=== PATIENT | male | born 1945 ===

== ENCOUNTER 2018-03-27 07:06 | Day surgery (SDC) | payer MEDICARE ==
--- NOTE | 2018-03-27 08:44 | CP.SDSHP ---
Same Day Surgery H & P - History Proposed Procedure: Screening colonoscopy Pre-Op Diagnosis: Screening for colon cancer - Previous Medical/Surgical History Cardiac: Hypertension Endocrine/Metabolic: Diabetes Previous Surgical History: Hernia - Allergies Allergies: Allergies No Known Allergies Allergy (Verified 02/04/15 17:03) - Current Medications Current Medications: See reconciliation sheet - Physical Exam General Appearance: WD WN male in NAD Vital Signs: Vital Signs 03/27/18 07:50 Temperature 98 F Pulse Rate 80 Respiratory 19 Rate Blood Pressure 133/80 O2 Sat by Pulse 98 Oximetry Mental Status: Alert & Oriented x3 Neuro: WNL Heart: WNL Lungs: WNL GI: WNL - {Optional Preform as Required} Abdomen: WNL - Impression Impression: Screening for colon cancer Pt. Evaluated Today:Candidate for Anesthesia & Procedure: Yes - Date & Time Date: 03/27/18 Time: 08:44 Short Stay Discharge - Short Stay Discharge Admitting Diagnosis/Reason for Visit: SCREENING Disposition: HOME/ ROUTINE
[2018-03-27] MEDS ORDERED: Propofol 10 mg/ml Inj (20 ML) ONE (08:56)
[2018-03-27] MEDS ORDERED: Lidocaine Hydrochloride 5 ML INJ ONE (08:57)
[2018-03-27 09:46] VITALS: TEMP 97.1
[2018-03-27 10:44] VITALS: BP 126/78; PULSE 69; RESP 15; O2SAT 97
== END 2018-03-27 10:42 | disposition home or self-care (01) ==
LOC: C.ENDO 07:06
PROVIDERS: ATTEND Internal Medicine Gastroenterology
DX: K57.90 Diverticulosis of intestine, part unspecified, without perforation or abscess without bleeding (principal); K64.8 Other hemorrhoids; D12.3 Benign neoplasm of transverse colon
CPT/HCPCS: 45380; 82948; 88305; J2704